=== PATIENT | female | born 1990 | race Caucasian/White ===

== ENCOUNTER 2016-07-26 11:43 | Emergency (ER) | payer OTHER | END 2016-07-26 12:43 | disposition home or self-care (01) | LOC: FER 11:43 | DX: R00.2 Palpitations (principal); R06.02 Shortness of breath; T50.995A Adverse effect of other drugs, medicaments and biological substances, initial encounter; F17.210 Nicotine dependence, cigarettes, uncomplicated | CPT/HCPCS: 93005 ==